=== PATIENT | female | born 1965 | race Caucasian/White ===

== ENCOUNTER 2017-09-30 17:18 | Emergency (ER) | payer OTHER ==
[2017-09-30] MEDS: DEXAMETHASONE 10 MG/ML 1 ML INJ IM (19:13)
[2017-09-30] MEDS: KETOROLAC 30 MG INJ IM (19:14)
== END 2017-09-30 20:24 | disposition home or self-care (01) ==
LOC: FTE 17:18
DX: M79.601 Pain in right arm (principal); M79.604 Pain in right leg
CPT/HCPCS: 96372; 99284-25